=== PATIENT | female | born 1995 | race Caucasian/White ===

== ENCOUNTER 2018-02-22 13:45 | Emergency (ER) | payer OTHER ==
--- NOTE | 2018-02-22 16:31 | EDPHY ---
General Time Seen by Provider: 02/22/18 16:23 Narrative: CHIEF COMPLAINT: Laceration HISTORY OF PRESENT ILLNESS: Patient presents to emergency department by private vehicle with complaints of laceration. She says she was at a bar late last night around 2:00 a.m. When she slipped and fell, sustained a laceration to the right buttock. This was caused by broken glass. She denies any head strike or loss of conscious. She has no pain aside from superficial pain laceration. No difficulty ambulating. No pain in the pelvis or hips. No complaints of pain anywhere else on her person. Tetanus up-to-date. she 1st presented to Urgent Care, and they sent her to our facility for higher level of care. No other associated complaints or modifying factors. TIME OF INJURY: 2:00 a.m. Last night TETANUS STATUS: Less than 5 years MEDICAL/SURGICAL/SOCIAL HISTORY: Uncomplicated. Nonsmoker. Lives independently. REVIEW OF SYSTEMS: Ten systems reviewed and are negative unless otherwise noted in the HPI EXAMINATION: Vitals: Triage VS reviewed General Appearance: Alert, no distress Head: normocephalic, atraumatic Cardiovascular: Pulses normal throughout. Brisk cap refill Neurological: A&O, sensory symmetric, strength symmetric Skin: Warm and dry, no rash. Oval shaped laceration on the right upper buttock at the 2:00 position. 3 cm in length with partial-thickness injury. There are adjacent superficial lacerations measuring 1 cm each without exposure of the subcutaneous tissue. There is no foreign body. No pulsatile bleeding. Extremities: Nontender, no pedal edema. Symmetric range of motion. DIFFERENTIAL DIAGNOSES: Including but not limited to laceration, laceration complication, laceration foreign body, laceration with deep tissue injury MDM: 4:23 p.m. Laceration to the right buttock caused by glass with delay in presentation. There is no obvious foreign body by direct examination. I have ordered x-ray to rule out possibly foreign body. The wound has been anesthetized will irrigate copiously. 4:55 p.m. X-ray negative for foreign body. Laceration has been irrigated copiously. We discussed risks, benefits alternatives to primary versus delayed closure. I do feel she is low risk given that she is only 13 hours post injury. Additionally she has no history of diabetes and she is nonsmoker. Further, this is a sensitive area where aesthetics are important, thus she is willing to assume the low risk of primary closure after delayed presentation. Wound was repaired without difficulty. We did discuss her delayed presentation the need for close monitoring for possible infection. She will be placed on antibiotics for prophylaxis. We discussed daily wound care and suture removal here in 7-10 days. I have answered all her questions. She is well-appearing and discharged home stable condition. PROCEDURE: Laceration repair Consent: Verbal Location: Right buttock Length of repair: 5 cm total Complexity: Simple Layer involvement: 2 layer Anesthesia: Local. 0.25% Marcaine with epinephrine, 10 mL Irrigation: Extensive Debridement: None Procedure description: Following good anesthesia, the wound was copiously irrigated. Wound bed was explored with a sterile glove, and there is no foreign body noted. Wound borders were approximated well with good hemostasis. Tolerated well without complication. Suture/Staple material: Subcutaneous layer: 5-0 Vicryl, 6 figure-eight sutures. cutaneous layer: 4-0 Prolene, 6 simple interrupted is Wound care: Routine as discussed Suture/Staple removal: 10 Days SUPERVISION: This patient was independently evaluated without direct involvement of or examination by the attending physician. ED Precautions: Worsening pain. Erythema, edema, cyanosis, pallor, paresthesia or anesthesia. - History History Review: I reviewed the patient's medical records Smoking Status: Never smoked - Objective Vital Signs: Initial Vital Signs Temperature (C) 98.6 F 02/22/18 14:13 Heart Rate 71 02/22/18 14:13 Respiratory Rate 17 02/22/18 14:13 Blood Pressure 106/83 H 02/22/18 14:13 O2 Sat (%) 96 02/22/18 14:13 O2 Delivery Mode Room Air Allergies/Adverse Reactions: amoxicillin Allergy (Verified 02/22/18 14:12) Penicillins Allergy (Verified 02/22/18 14:12) Home Medications: Medication Instructions Recorded Cephalexin [Keflex (*)] 500 mg PO QID #40 cap 02/22/18 Departure - Departure Disposition: Home, Routine, Self-Care Clinical Impression: Laceration of buttock Condition: Good Instructions: Care For Your Stitches (ED), Laceration (ED) Additional Instructions: 1. Thin layer of bacitracin once daily for the next 2 days 2. Keep the wound covered while showering for the next 3 days 3. Daily wound care as discussed 4. Return here for suture removal in 7-10 days 5. Return here for signs of infection as discussed including warmth, redness, fever, drainage from the site 6. return here for increasing pain surrounding the laceration 7. Do not submerge the wound in any water, hot tub, swimming pool until sutures removed 8. Antibiotics as prescribed to completion Referrals: Kana Lee DO [Doctor of Osteopathy] - As per Instructions Physician,Emergency Dept, [Medical Doctor] - As per Instructions (7-10 days for suture removal) Prescriptions: Cephalexin [Keflex (*)] 500 mg PO QID #40 cap
[2018-02-22 17:49] VITALS: BP 123/71
== END 2018-02-22 17:48 | disposition home or self-care (01) ==
PROC: 0HQ8XZZ Repair Buttock Skin, External Approach (ICD-10-PCS; principal; 2018-02-22)
DX: S31.811A Laceration without foreign body of right buttock, initial encounter (principal); W01.0XXA Fall on same level from slipping, tripping and stumbling without subsequent striking against object, initial encounter; W25.XXXA Contact with sharp glass, initial encounter; Y92.9 Unspecified place or not applicable; Y93.9 Activity, unspecified; Y99.9 Unspecified external cause status